=== PATIENT | female | born 1995 | race African-American/Black ===

== ENCOUNTER 2021-08-01 00:08 | Inpatient (IN) ==
[2021-08-01] MEDS ORDERED: LACTATED RINGERS 500 ML IV PRN (00:23)
[2021-08-01] MEDS ORDERED: MEPERIDINE 50 MG/1 ML VIAL IV PRN (00:23)
[2021-08-01] MEDS ORDERED: BUTORPHANOL 2 MG/ML VIAL IV PRN (00:23)
[2021-08-01] MEDS ORDERED: ONDANSETRON 4 MG/2 ML VIAL IV PRN (00:23)
[2021-08-01 00:56] LABS: Basophils % 0.3 % (0.0-0.8); Eosinophils % 0.5 % (0.00-10.9); Hematocrit 32.8 VOL% (35.7-47.0); Hemoglobin 10.8 GM/DL (12.0-16.0); Immature Granulocytes % 0.4 %; Immature Granulocytes Absolute 0.03 #; Lymphocytes # 1.6 10*3/uL (1.4-4.0); Lymphocytes % 21.3 % (21.3-54.2); Mean Corpuscular HGB Conc 32.9 GM/DL (32-36); Mean Corpuscular Volume 90.1 FL (87-102); Mean Platelet Volume 11.2 FL (9.6-12.0); Monocytes % 8.5 % (1.7-12.7); Platelet Count 203 T/CUMM (130-400); Red Blood Count 3.64 MC/CUMM (3.8-5.5); Red Cell Distribution Width 13.3 % (9.3-17.3); White Blood Count 7.5 T/CUMM (4-12)
[2021-08-01] MEDS ORDERED: OXYTOCIN/LR 30 UNIT/1,000 ML BAG IV PRN (00:59)
[2021-08-01 01:14] LABS: Alanine Aminotransferase 17 U/L (13-56); Albumin 2.7 G/DL (3.4-5.0); Alkaline Phosphatase 130 U/L (45-117); Aspartate Amino Transferase 12 U/L (0-37); Bilirubin,Total < 0.39 MG/DL (0.20-1.00); Blood Urea Nitrogen 10 MG/DL (7-18); Calcium 9.1 MG/DL (8.5-10.1); Carbon Dioxide 23 MMOL/L (21-32); Estimated Glom Filtration Rate 174 ML/MIN; Glucose 114 MG/DL (74-106); Osmolality,Calculated 274.7 MOS/KG (273-304); Potassium 3.9 MMOL/L (3.5-5.1); Sodium 138 MMOL/L (136-145)
[2021-08-01] MEDS: LACTATED RINGERS 1,000 ML IV SCH ×3 (04:24→13:04)
[2021-08-01] MEDS: OXYTOCIN/LR 20 UNIT/1,000 ML BAG IV PRN (13:04)
[2021-08-01] MEDS: AMPICILLIN INJ 2,000 MG in SODIUM CHLORIDE 0.9% 100 ML IV SCH (17:33)
[2021-08-02] MEDS: AMPICILLIN INJ 2,000 MG in SODIUM CHLORIDE 0.9% 100 ML IV SCH ×3 (00:03→11:03)
[2021-08-02] MEDS: LACTATED RINGERS 1,000 ML IV SCH ×3 (00:08→20:07)
[2021-08-02] MEDS ORDERED: LACTATED RINGERS 1,000 ML IV ONE (07:49)
[2021-08-02] MEDS ORDERED: NALOXONE 0.4 MG/ML VIAL IV PRN (07:49)
[2021-08-02] MEDS ORDERED: CITRIC ACID/SODIUM CITRATE 30 ML UDCUP PO ONE (07:49)
[2021-08-02] MEDS ORDERED: diphenhydrAMINE 50 MG/1 ML VIAL IV PRN ×2 (07:49)
[2021-08-02] MEDS ORDERED: ePHEDrine 50 MG/ML VIAL IV PRN (07:49)
[2021-08-02] MEDS ORDERED: hydrOXYzine HCL 25 MG/1 ML VIAL IM PRN (07:49)
[2021-08-02] MEDS ORDERED: FAMOTIDINE 20 MG/2 ML VIAL IV ONE (07:49)
[2021-08-02] MEDS ORDERED: PROMETHAZINE 25 MG/1 ML VIAL IM ONE (07:49)
[2021-08-02] MEDS ORDERED: fentaNYL 2 MCG/ROPIV 0.2% EPID 100 ML EPIDURAL SCH (08:00)
[2021-08-02] MEDS: OXYTOCIN/LR 20 UNIT/1,000 ML BAG IV PRN (11:02)
[2021-08-02 12:34] LABS: Bilirubin,Urine Negative (Negative); Blood, Urine Negative (Negative); Glucose,Urine (UA) Negative (Negative); Ketones,Urine 80 mg/dL (Negative); Mucus,Urine Occasional /LPF (Occasional); Nitrite,Urine Negative (Negative); Protein,Urine Negative; RBC,Urine 1 /HPF (0-4); Squamous Epithelial Cell,Urine Occasional /HPF (0-10); Urine Appearance CLEAR (Clear); Urine Color Yellow (Yellow); Urine Specific Gravity 1.018 (1.001-1.035)
[2021-08-02] MEDS ORDERED: ceFAZolin 2,000 MG/50 ML DUPLEX IV ONE (13:16)
[2021-08-02] MEDS ORDERED: METHYLERGONOVINE 0.2 MG/1 ML AMP ONE (13:36)
[2021-08-02] MEDS ORDERED: miSOPROStoL 200 MCG TABLET ONE (13:36)
[2021-08-02] MEDS ORDERED: TRANEXAMIC ACID 1,000 MG/10 ML VIAL ONE (13:36)
[2021-08-02] MEDS ORDERED: CARBOPROST TROMETHAMINE 250 MCG/ML AMP IM ONE (13:36)
[2021-08-02] MEDS ORDERED: LIDOCAINE MPF 2% /EPI 20 ML VIAL ONE (13:43)
[2021-08-02] MEDS ORDERED: RHO(D) IMMUNE GLOBULIN 300 MCG SYRINGE IM ONE (13:51)
[2021-08-02] MEDS ORDERED: ONDANSETRON 4 MG/2 ML VIAL IV PRN (13:51)
[2021-08-02] MEDS ORDERED: PHENYLEPHRINE 1 MG/10 ML SYRINGE IV ONE (13:51)
[2021-08-02] MEDS ORDERED: IBUPROFEN 800 MG TABLET PO PRN (13:51)
[2021-08-02] MEDS ORDERED: ACETAMINOPHEN 325 MG TABLET PO PRN (13:51)
[2021-08-02] MEDS ORDERED: OXYTOCIN/LR 20 UNIT/1,000 ML BAG IV ONE (13:51)
[2021-08-02] MEDS ORDERED: OXYTOCIN 10 UNIT/ML VIAL IM ONE (14:00)
[2021-08-02] MEDS ORDERED: DEXAMETHASONE 4 MG/1 ML VIAL ONE (14:15)
[2021-08-02 14:16] LABS: Cord Arterial Blood HCO3 21.4 MMOL/L
[2021-08-02] MEDS ORDERED: propofoL 200 MG/20 ML VIAL IV ONE (14:16)
[2021-08-02] MEDS ORDERED: ONDANSETRON 4 MG/2 ML VIAL ONE (14:16)
[2021-08-02] MEDS ORDERED: ACETAMINOPHEN INJ 1,000 MG/100 ML VIAL IV ONE (14:16)
[2021-08-02] MEDS ORDERED: KETOROLAC 30 MG/1 ML VIAL ONE (14:16)
[2021-08-02 14:18] LABS: Cord Venous Blood HCO3 24.9 MMOL/L; Cord Venous Blood PCO2 46.5 MMHG; Cord Venous Blood PO2 28.4 MMHG
[2021-08-02] MEDS: KETOROLAC 30 MG/1 ML VIAL IV PRN (20:01)
[2021-08-02] MEDS: ACETAMINOPHEN 500 MG TABLET PO PRN (20:02)
[2021-08-03] MEDS: DOCUSATE SODIUM 100 MG CAPSULE PO SCH ×2 (00:54→21:22)
[2021-08-03] MEDS: KETOROLAC 30 MG/1 ML VIAL IV PRN ×2 (02:00→08:18)
[2021-08-03] MEDS: ACETAMINOPHEN 500 MG TABLET PO PRN ×2 (02:00→08:17)
[2021-08-03 05:54] LABS: Basophils % 0.1 % (0.0-0.8); Hematocrit 28.1 VOL% (35.7-47.0); Hemoglobin 9.4 GM/DL (12.0-16.0); Immature Granulocytes % 0.6 %; Immature Granulocytes Absolute 0.08 #; Lymphocytes # 1.2 10*3/uL (1.4-4.0); Lymphocytes % 9.1 % (21.3-54.2); Mean Corpuscular HGB Conc 33.5 GM/DL (32-36); Mean Corpuscular Volume 91.2 FL (87-102); Mean Platelet Volume 11.4 FL (9.6-12.0); Monocytes % 7.7 % (1.7-12.7); Neutrophils % 82.5 % (38.7-73.9); Platelet Count 181 T/CUMM (130-400); Red Blood Count 3.08 MC/CUMM (3.8-5.5); Red Cell Distribution Width 13.2 % (9.3-17.3); White Blood Count 12.8 T/CUMM (4-12)
[2021-08-03 06:23] LABS: Lymphocytes 9 % (20-55); Segmented Neutrophils 84 % (50-85); Total Cells Counted 100
[2021-08-03 06:24] LABS: Hypochromasia 1+; Microcytosis 1+; Platelet Estimate Adequate
[2021-08-03] MEDS: LACTATED RINGERS 1,000 ML IV SCH (06:29)
[2021-08-03] MEDS: MAGNESIUM HYDROXIDE SUSP 30 ML UDCUP PO PRN (15:42)
[2021-08-03] MEDS: SIMETHICONE CHEW 80 MG TABLET PO PRN (15:42)
[2021-08-03] MEDS: MULTIVITAMIN (PRENATAL) TABLET PO SCH (15:43)
[2021-08-03] MEDS: FERROUS SULFATE 325 MG TABLET PO SCH (21:22)
[2021-08-04 04:06] VITALS: BP 117/60
[2021-08-04] MEDS: SIMETHICONE CHEW 80 MG TABLET PO PRN (08:33)
[2021-08-04] MEDS: DOCUSATE SODIUM 100 MG CAPSULE PO SCH (08:33)
[2021-08-04] MEDS: MAGNESIUM HYDROXIDE SUSP 30 ML UDCUP PO PRN (08:34)
[2021-08-04] MEDS: FERROUS SULFATE 325 MG TABLET PO SCH (08:34)
[2021-08-04] MEDS: MULTIVITAMIN (PRENATAL) TABLET PO SCH (08:34)
[2021-08-04] MEDS ORDERED: INFLUENZA VIRUS VACCINE 0.5 ML SYRINGE IM ONE (08:42)
[2021-08-04] MEDS ORDERED: DIPH/TET/ACEL PERT BOOSTER VACCINE 0.5 ML VIAL IM ONE (08:42)
== END 2021-08-04 11:25 | disposition home or self-care (01) | DRG 540 ==
LOC: N.LD 00:08
PROVIDERS: ADMIT Obstetrics & Gynecology; ATTEND Obstetrics & Gynecology
PROC: LDCSECT (ICD-10-PCS; 2021-08-02 13:30)